=== PATIENT | female | born 1995 | race Caucasian/White ===

== ENCOUNTER 2016-12-07 13:46 | Emergency (ER) | payer OTHER ==
[2016-12-07 15:00] LABS: HEMOGLOBIN 13.1 gm/dl (12.3-15.3); RED BLOOD COUNT 4.44 M/UL (4.00-5.10); WHITE BLOOD COUNT 9.7 K/UL (4.5-11.0)
[2016-12-07 15:13] LABS: BUN/CREATININE RATIO 15 (0-10)
== END 2016-12-07 16:20 | disposition home or self-care (01) ==
LOC: ER1 13:46
PROVIDERS: Emergency Medicine
DX: T43.591A Poisoning by other antipsychotics and neuroleptics, accidental (unintentional), initial encounter (principal); F15.10 Other stimulant abuse, uncomplicated; F31.9 Bipolar disorder, unspecified
CPT/HCPCS: 36415; 80053; 80307; 81001; 82550; 84703; 85025; 93005; 99284; G0480; J7030

== ENCOUNTER → 2016-12-24 | Outpatient (CLI) | payer OTHER | LOC: KOH-I 11:12 | DX: R05 Cough (principal); R06.2 Wheezing | CPT/HCPCS: 71020 ==

== ENCOUNTER → 2021-04-24 | Outpatient (CLI) | payer OTHER | LOC: KOH-I 08:30 → EXRD 11:00 | DX: G83.4 Cauda equina syndrome (principal); R10.84 Generalized abdominal pain; K76.0 Fatty (change of) liver, not elsewhere classified; M51.27 Other intervertebral disc displacement, lumbosacral region | CPT/HCPCS: 72148; 76700 ==